=== PATIENT | female | born 1960 | race Caucasian/White ===

== ENCOUNTER → 2023-12-23 15:55 | Outpatient (REF) | payer BC, SELFPAY | LOC: HWWDC 15:55 | PROVIDERS: ATTENDING PHYSICIAN Family Medicine | DX: Z12.31 Encounter for screening mammogram for malignant neoplasm of breast (principal) | CPT/HCPCS: 77063; 77067 ==

== ENCOUNTER → 2024-01-20 16:04 | Outpatient (REF) | payer BC, SELFPAY | LOC: PAVMRI 16:04 | PROVIDERS: ATTENDING PHYSICIAN Family Medicine; OTHER PHYSICIAN Radiology Diagnostic Radiology | DX: M51.34 Other intervertebral disc degeneration, thoracic region (principal); M62.830 Muscle spasm of back; R29.898 Other symptoms and signs involving the musculoskeletal system; S05.50XA Penetrating wound with foreign body of unspecified eyeball, initial encounter | CPT/HCPCS: 70030; 72146 ==

== ENCOUNTER → 2024-02-26 15:24 | Outpatient (REF) | payer BC, SELFPAY | LOC: HWRAD 15:24 | PROVIDERS: ATTENDING PHYSICIAN Family Medicine | DX: R93.89 Abnormal findings on diagnostic imaging of other specified body structures (principal) | CPT/HCPCS: 76536 ==

== ENCOUNTER 2024-09-21 06:06 | Day surgery (SDC) | payer BC, SELFPAY ==
[2024-09-08 08:59] LABS: Mean Corp Hgb Conc. 33.3 g/dL (33.0-37.0); Mean Corpuscular Hgb 28.8 pg (27.0-31.0); Mean Corpuscular Volume 86.4 fL (81.0-99.0); Mean Platelet Volume 10.3 fL (7.4-10.4); Platelet Count 217 10^3/uL (130-400); Red Blood Cell Count 4.86 10^6/uL (4.20-5.40); Red Cell Dist. Width 13.1 % (11.5-14.5); White Blood Cell Count 5.6 10^3/uL (4.8-10.8)
[2024-09-08 09:05] LABS: APTT 35.6 Sec (23.4-35.0); INR 1.01; PT 13.8 Sec (11.4-14.6)
[2024-09-08 09:23] LABS: ALT (SGPT) 24 U/L (0-35); AST (SGOT) 26 U/L (14-36); Albumin 4.3 g/dl (3.5-5.0); Alkaline Phosphatase 77 U/L (38-126); Blood Urea Nitrogen 14 mg/dl (7-17); Calcium 9.2 mg/dl (8.4-10.2); Carbon Dioxide 26 mmol/L (22-30); Chloride 105 mmol/L (98-107); Glucose 107 mg/dl (70-99); Potassium 4.5 mmol/L (3.5-5.1); Sodium 144 mmol/L (135-145); Total Bilirubin 0.6 mg/dl (0.2-1.3); Total Protein 7.3 g/dl (6.3-8.2); eGFR > 60.00
[2024-09-08 10:48] VITALS: BMI 38.1
[2024-09-21] VITALS (10 sets, daily range): BP systolic 112–145; BP diastolic 56–70; BMI 38.1
[2024-09-21] MEDS: NEURONTIN 300 MG PO (06:51)
[2024-09-21] MEDS: HEPARIN 5000 UNITS SC (06:51)
[2024-09-21] MEDS: TYLENOL 1000 MG PO (06:51)
--- NOTE | 2024-09-21 09:09 | OR.RPT ---
Operative Report
Operative Report
DATE OF OPERATION: September 21, 2024
PREOPERATIVE DIAGNOSIS: Left Substernal Goiter - E040
POSTOPERATIVE DIAGNOSIS: Same
SURGEON: Eric Henao M.D.
OPERATION: Resection of the Left Substernal Goiter � [id number]
�������������������Autotransplant of Left Inferior Parathyroid Gland in the Left SCM Muscle
ANESTHESIA: GET
ESTIMATED BLOOD LOSS: 3 cc
DRAINS: None
SPECIMEN: left total thyroid lobe and isthmus
FINDINGS: A large multinodular substernal goiter wrapping about the trachea and esophagus
COMPLICATIONS:� None
PROCEDURE:
The patient was taken to the operating room and placed in the usual supine position. After adequate general endotracheal anesthesia was established, the patient�s neck was extended, prepped, and draped in the typical sterile fashion. A 5 cm
transcervical incision was made two fingerbreadths above the sternal notch. The skin incision was made with the #15 blade, which was taken through the skin into the subcutaneous tissue. The underlying platysma muscle was divided, and subplatysmal
flaps were created superiorly to the thyroid cartilage and inferiorly to the sternal notch. Strap muscles were identified and at the midline.
Attention was turned to the patient�s left thyroid lobe. The left thyroid lobe was mobilized medially. During this process, the left middle thyroid vein and inferior thyroid artery were dissected and ligated with Ligasure. There was a substernal
extension, which was delivered out of the mediastinum through the cervical incision. Also the thyroid was wrapping around the tracheal and esophagus, which was delivered out after ligating the left inferior vein and artery. Next, the left superior
pole was taken down by dissecting and transecting the superior pole vessels with a Ligasure. The left thyroid lobe was mobilized medially.
During this process, the left recurrent laryngeal nerve was identified and preserved throughout its entire course. The left superior and parathyroid gland was identified and preserved. The left inferior parathyroid gland came out the specimen, which
was dissected, minced, and autotransplanted in the left SCM muscle. The left thyroid lobe with isthmus was resected off the trachea and sent to the pathology department.
After obtaining adequate hemostasis, the strap muscle was approximated with #3-0 Vicryl in a running fashion, and platysma muscles were reapproximated with #3-0 Vicryl in an interrupted fashion, and the skin was approximated with #4-0 Monocryl in a
running subcuticular fashion. Steri-strips and sterile dressings were placed. The patient tolerated the procedure well. The final instrument, needle, and sponge counts were correct.
[2024-09-21] MEDS: DILAUDID 0.25 MG IV (09:28)
[2024-09-21] MEDS: TYLENOL 650 MG PO (12:03)
== END 2024-09-21 12:10 | disposition home or self-care (01) ==
LOC: SDS 06:06
PROVIDERS: ATTENDING PHYSICIAN Surgery; FAMILY PHYSICIAN Family Medicine
DX: E07.89 Other specified disorders of thyroid (principal); E04.0 Nontoxic diffuse goiter
CPT/HCPCS: 60271; 88307; 36415; 80053; 85027; 85610; 85730; C1776

== ENCOUNTER → 2025-04-14 15:19 | Outpatient (REF) | payer BC, SELFPAY | LOC: HWWDC 15:19 | PROVIDERS: ATTENDING PHYSICIAN Family Medicine | DX: Z12.31 Encounter for screening mammogram for malignant neoplasm of breast (principal) | CPT/HCPCS: 77063; 77067 ==